=== PATIENT | female | born 1995 | race Two or more races ===

== ENCOUNTER 2025-01-30 12:46 | Emergency (ER) | payer MEDICAID, SELFPAY ==
--- NOTE | 2025-01-30 12:59 | PD.EDEAR ---
ED Ear RME/HPI General Chief complaint: Ear Stated complaint: HAS SOMETHING IN L) EAR, DOESN'T KNOW WHAT IT IS Time Seen by Provider: 01/30/25 12:49 Arrival date/time: 01/30/25 12:46 29-year-old female presents with concerns for possible foreign body in the left ear patient's child is also here with a cotton swab in her right ear Limitations: no limitations Related Data Home Medications ?Medication ?Instructions ?Recorded ?Confirmed calcium carbonate (Tums) 2 tab PO Q6HR PRN Indigestion 06/18/18 05/14/23 prenat.vits,geovani,[id number] 1 tab PO QDAY 06/18/18 05/14/23 ( Vitamin tablet) Allergies Allergy/AdvReac Type Severity Reaction Status Date / Time No Known Allergies Allergy Verified 01/30/25 12:48 Review of Systems Review of Systems Systems Reviewed: All systems reviewed, normal except as documented Constitutional Constitutional: Reports system reviewed and no additional complaints, except as documented, Denies fever(s) and Denies headache(s) Eyes Eyes: Reports system reviewed and no additional complaints, except as documented and Denies blurry vision ENT Ears, Nose, Mouth, and Throat: Reports system reviewed and no additional complaints, except as documented, Denies headache(s), Denies nasal congestion and Denies nasal discharge Cardiovascular Cardiovascular: Reports system reviewed and no additional complaints, except as documented, Denies chest pain and Denies dyspnea Respiratory Respiratory: Reports system reviewed and no additional complaints, except as documented, Denies chest congestion, Denies cough and Denies dyspnea Gastrointestinal Gastrointestinal: Reports system reviewed and no additional complaints, except as documented and Denies abdominal pain Integumentary/Breasts Skin/Breast: Reports system reviewed and no additional complaints, except as documented and Denies rash Neurologic Neurologic: Reports system reviewed and no additional complaints, except as documented, Reports as per HPI and Denies headache(s) Past Medical History Past Medical History NEUROLOGIC: Negative Neurological Disorders CARDIAC: Negative Cardiac Disorders or Congestive Heart Failure RESPIRATORY: Negative Chronic Obstructive Pulmonary Disease (COPD) GASTROINTESTINAL: Negative Gastrointestinal Disorders, Hepatitis or Colorectal Cancer GENITOURINARY: Negative Genitourinary Disorders, Renal Disease or Prostate Cancer REPRODUCTIVE: Positive Previous Pregnancies; Negative Breast Cancer, Pelvic Inflammatory Disease or Testicular Cancer MUSCULOSKELETAL: Negative Musculoskeletal Disorders or Bone Cancer ENDOCRINE: Negative Endocrine Disorders, Diabetes Mellitus Type 1 or Diabetes Mellitus Type 2 HEMATOLOGIC: Negative Blood Disorders OTHER HISTORY: Negative Hospitalization, Autoimmune Disease, Down Syndrome, Developmental Delay, Shingles, Falls, Blood Transfusions, Blood Transfusion Reaction, Anesthesia Reactions, Organ Transplant, Chemotherapy, Radiation Therapy, Hyperbaric Therapy, MRSA, VRSA, Vancomycin-Resistant Enterococci, Human Immunodeficiency Virus (HIV), Chicken Pox, Measles, Mumps, Rubella ([place] Measles), Pertussis, Clostridium Difficile, Breast Cancer, Cervical Cancer, Colorectal Cancer, Lung Cancer, Ovarian Cancer, Prostate Cancer or Testicular Cancer Family History FAMILY HISTORY: Positive Family Cancer; Negative Family Psychiatric Problems, Family Respiratory Disorders, Family Cardiac Disorders, Family Gastrointestinal Problems, Family Surgery or Family Anesthesia Reaction Surgical History SURGICAL: Positive Gastric Bypass Surgery; Negative Section or Organ Transplant Social History SMOKING STATUS: Never smoker SUBSTANCE USE: does not use ED Exam General Limitations: Present no limitations General appearance: Present alert and in no apparent distress Head Head exam: Present atraumatic Eye Eye exam: Present normal appearance, PERRL and EOMI ENT ENT exam: Present normal exam, normal oropharynx and mucous membranes moist Neck Neck exam: Present normal inspection, full ROM and trachea midline Chest Chest inspection: Present normal inspection and symmetric chest wall rise Respiratory Respiratory exam: Present normal lung sounds bilaterally Cardiovascular Cardiovascular exam: Present regular rate, normal rhythm and normal heart sounds Abdominal Exam Abdominal exam: Present soft and normal bowel sounds Extremities Exam Extremities exam: Present normal inspection and full ROM Back Exam Back exam: Present normal inspection and full ROM Neurological Exam Neurological exam: Present alert, oriented X3 and CN II-XII intact Psychiatric Psychiatric exam: Present normal affect and normal mood Skin Skin exam: Present warm, dry, intact and normal color Course Quality Measures none Vital Signs Vital signs: Vital Signs Temperature 98.5 F 01/30/25 13:02 Pulse Rate 89 01/30/25 13:02 Respiratory Rate 18 01/30/25 13:02 Blood Pressure 138/89 H 01/30/25 13:02 Pulse Oximetry (%) 99 01/30/25 13:02 Oxygen Delivery Method Room Air 01/30/25 13:02 O2 saturation 9 9% on room air within normal limits Ear Patient data External records reviewed:: [facility] previous records Clinical information provided by:: patient Social determinants that could affect healthcare access:: none Patient has the following chronic illnesses:: None How is presenting disease/condition affected by chronic disease/condition?: no chronic disease Evaluation data The following diagnostics were reviewed and interpreted by me:: other (specify) Lab and/or radiology exams considered but not ordered:: Consider not ordered Interpretation Summary: N/A Medications / Prescriptions Medications or Prescriptions considered but not ordered:: Given no meds Medication administrations:: Given no meds Consultations Consultation(s) initiated? (list below): No Diagnosis Ear Differential Diagnosis: otitis externa, otitis media and foreign body in ear Most likely diagnosis given after review of the tests above:: Foreign body ear Admission Indicated Admission indicated?: not indicated Admission Request Was there a request for admission?: No Disposition Plan Disposition Plan: Discharge Discharge Attestation Discharge Attestation: The patient and all family members were given an opportunity to ask questions and understood the discharge instructions. Discharge instructions specifically effects, indications for sooner follow up or return to the emergency department, and the expected course of current diagnosis. Patient condition: Stable Medical Decision Making MDM Narrative MDM Narrative: 29-year-old female presents with concerns for possible foreign body in the left ear patient's child is also here with a cotton swab in her right ear On exam patient well-appearing patient's not appear ill or toxic patient is no evidence of foreign body in either ear Patient discharged home in no distress to follow-up with primary care doctor in the next 24 to 48 hours and for any worsening symptoms to return to the ER immediately Differential Diagnosis Differential Diagnosis: Foreign body ear, normal exam, otalgia Medical Records Medical records reviewed: Yes I reviewed the patient's medical records. Discharge Plan Plan Patient Disposition: HOME (Self Care) Disposition Comment: Stable Prescriptions/Referrals Prescriptions/Med Rec: No Action calcium carbonate [Tums] 200 mg calcium (500 mg) Tablet,Chewable 2 tab PO Q6HR PRN (Reason: Indigestion) Vitamin Tablet 1 tab PO QDAY Problem List Clinical Impression: Otalgia Patient/Caregiver Discharge Instructions Education Materials: Anatomy of the Ear Additional Instructions: Please follow up with your primary care doctor in the next 24-48hrs for any worsening symptoms return here immediately Print Language: Armenian Stand Alone Forms: Anat Award Info., Patient Portal Info Letter PA/HYDROELECTRIC MECHANIC Supervising Physician PA/HYDROELECTRIC MECHANIC Supervising Physician: Dr stewart
[2025-01-30 13:02] VITALS: BP 138/89; PULSE 89; RESP 18; TEMP 36.9; O2SAT 99
== END 2025-01-30 13:10 | disposition home or self-care (01) ==
LOC: SERX 14:11
PROVIDERS: Emergency Provider Family Medicine
DX: H92.02 Otalgia, left ear (principal)
CPT/HCPCS: 99281

== ENCOUNTER 2025-04-08 10:37 | Observation (INO) | payer MEDICAID, SELFPAY ==
[2025-04-08 10:45] VITALS: BP 118/61; PULSE 93; RESP 16; RESP 98; TEMP 36.8; BMI 32.1
--- NOTE | 2025-04-08 11:02 | PC.NURSE ---
MD Ashley called with Sbar report. more then 10 movements per hour. no labor complaints. pt will be discharged home. education will be given on kick counts. encourage pt to return to triage prn
--- NOTE | 2025-04-08 11:14 | PC.NURSE ---
1035 pt to triage with c/o decreased fm. denies any ctx, bleeding or leaking. Pt states that she has last felt baby move yesterday at 2100. pt ate this morning, efmx2 applied. fm clicker provided to pt and educated to push with fm. pt stated I just felt him move . abdomen palpates soft.
--- NOTE | 2025-04-08 11:17 | PC.NURSE ---
1113- sbar report given to MD alan. Cat 1 strip. over 20 fm reported since efm placement. mother now feels move. per md, discharge mother home.
--- NOTE | 2025-04-08 11:18 | PC.NURSE ---
1115- antepartum and kick count education given to mother and significant other. Pt comfortable with plan of discharge and agreeable to go home. RTT PRN for bleeding, leaking, or contractions or decreased FM. pt in stable condition ambulatory home.
== END 2025-04-08 11:15 | disposition home or self-care (01) ==
PROVIDERS: Admitting Provider Obstetrics & Gynecology; Visit Provider Obstetrics & Gynecology
DX: O36.8130 Decreased fetal movements, third trimester, not applicable or unspecified (principal); Z3A.38 38 weeks gestation of pregnancy
CPT/HCPCS: 59025; 59899

== ENCOUNTER 2025-04-23 19:24 | Inpatient (IN) | payer MEDICAID, SELFPAY ==
[2025-04-23 19:28] VITALS: BMI 34.4
[2025-04-23] MEDS: RINGERS LACTATED 1000 ML 1,000 ML 125 ML IV (19:35)
--- NOTE | 2025-04-23 20:05 | XR_ITS ---
Examination: Complete OB ultrasound greater than 14 weeks Date and time of exam: April 23, 2025 2030 hours INDICATIONS: Labor induction, postdates Findings: Viable intrauterine single fetus with single amniotic sac presentation cephalic Cardiac motion 126 BPM Placenta anterior grade 2 Umbilical cord insertion 3 vessel seen Amniotic fluid index 8.2 cm spine maternal right Ovaries obscured by bowel gas. Composite estimated gestational age based on BPD, head circumference, abdominal circumference, femur length is 39 weeks 5 days Estimated weight 3825 g. Survey of intracranial anatomy, spinal anatomy, abdominal anatomy, four-chamber heart performed with no abnormalities identified. Impression: Viable intrauterine gestation cephalic presentation.
[2025-04-23 20:21] LABS: Basophils % (Auto) 0 % (0-2.5); Eosinophils # (Auto) 0.2 Thou/mm3 (0.0-0.5); Eosinophils % (Auto) 2 % (0-10); Hematocrit 33.5 % (36.0-46.0); Hemoglobin 12.3 g/dL (12.0-16.0); Immature Granulocytes % (Auto) 0 % (0-0); Immature Granulocytes Auto 0.03 Thou/mm3 (0.00-0.00); Lymphocytes % (Auto) 24 % (10-50); Mean Corpuscular HGB Conc 36.7 g/dl (31.0-37.0); Mean Corpuscular Hemoglobin 32.1 pg (25.0-35.0); Mean Corpuscular Volume 88 fL (80-100); Monocytes # (Auto) 0.6 Thou/mm3 (0.0-0.8); Monocytes % (Auto) 7 % (0-12); Neutrophils # (Auto) 5.7 Thou/mm3 (1.8-7.7); Neutrophils % (Auto) 67 % (37-80); Nucleated Red Blood Cell % 0 /100 WBC (0); Platelet Count 253 Thou/mm3 (140-440); RDW Standard Deviation 42.6 fL (36.4-46.3); Red Blood Count 3.83 Miln/mm3 (4.00-5.20); White Blood Count 8.5 Thou/mm3 (3.6-11.0)
--- NOTE | 2025-04-23 21:00 | ESHP_ITS ---
Documentation for date of: 04/24/25 OB Labor/Induct. HPI History of Present Illness Chief complaint: 29 y/o 40w 2d presents to L&D for IOL for postdates : 7 Para: 4 Term pregnancies: 4 pregnancies: 0 Living children: 4 History of Abortions: Spontaneous and Elective: 0 History of Vaginal deliveries: 4 History of sections: No History of : No Date of last menstrual period: 07/15/24 ANUJA: 04/21/25 Gestational Age (weeks): 40 Gestational Age (days): 2 Gestational age based on last menstrual period: 40 Indication for induction: post dates History of present illness: 29 y/o 40w 2d presents to L&D for IOL for postdates. Cervix is 1 thick and high vertex. has been uncomplicated. GBS is neg. EFW 3900g History of Present Dating criteria: LMP confirmed by 1st trimester US Adequate Care: Yes Ultrasounds: normal 1st trimester US and normal mid trimester US Obstetrical complications: none Medical complications: none Labs Maternal Blood Type: O Pos Labs: Positive: Rubella Titre, Negative: RPR, Hepatitis B, HIV, Chlamydia, Gonorrhea and Group Beta Strep and Unknown: Herpes Type 1, Herpes Type 2 and Covid-19 Review of Systems Review of Systems Systems Reviewed: All systems reviewed, normal except as documented Past Medical History Surgical History SURGICAL: Negative Section Meds Home Medications and Allergies Home Medications ?Medication ?Instructions ?Recorded ?Confirmed ?Type calcium carbonate (Tums) 2 tab PO Q6HR PRN Indigestio n 06/18/18 05/14/23 History prenat.vits,geovani,[id number] 1 tab PO QDAY 06/18/18 05/14/23 History ( Vitamin tablet) Allergies Allergy/AdvReac Type Severity Reaction Status Date / Time No Known Allergies Allergy Verified 04/08/25 11:28 OB Exam Physical Exam Vital signs: Temp Pulse BP 98.2 F 76 109/55 L 04/24/25 07:30 04/24/25 11:26 04/24/25 11:26 Constitutional Constitutional: no acute distress Routine HEENT Exam Head: Present normocephalic and atraumatic Eye: Present EOMI, PERRL and normal accommodation ENT: Present mucous membranes moist Routine Neck Exam Neck: Present supple, full ROM and trachea midline Routine Cardiovascular Exam Cardiovascular: Present RRR Routine Abdominal Exam Abdominal: Present soft and normoactive bowel sounds; Absent tenderness Comments: Gravid Uterus EFW 3900g Routine Exam External: Present normal urethra appearance; Absent lesions Detailed Labor and Delivery Exam Dilation (cm): 1 Effacement (%): 30 Cervix position: posterior station: -3 Consistency: soft Presentation: Vertex Membranes: intact Baseline heart rate: 130 monitor accelerations: 15x15 monitor decelerations: None terminal system operator variability: Moderate (11-25) Contraction frequency (min): none Routine Extremities Exam Extremities: Present full ROM Routine Back/Spine/Pelvis Exam Back/Spine: Present full ROM Routine Skin Exam Skin: Present intact, dry and warm Routine Neurological Exam Neurological: Present alert, oriented X3 and CN II-XII intact Routine Psychiatric Exam Psychiatric: Present normal affect and normal thought process OB Results Labs 04/23/25 19:40 Labs: Short CBC 04/23/25 Range/Units 19:40 WBC 8.5 (3.6-11.0) Thou/mm3 Hgb 12.3 (12.0-16.0) g/dL Hct 33.5 L (36.0-46.0) % Plt Count 253 (140-440) Thou/mm3 OB Assessment & Plan Assessment and Plan (1) Encounter for induction of labor: Status: Acute (2) Grand multipara in labor in third trimester: Status: Acute Additional Plan Induction method: other (cervidil) Plan: induction Additional Plan Comment: Routine admit orders 2nd IV PPH precautions Ordered 2 units of PRBCs on hold Consult anethesia for an episural
[2025-04-23 21:03] VITALS: BP 117/71; PULSE 86
[2025-04-23] MEDS: DINOPROSTONE 10 MG VAG.SUPP VAGINAL (21:45)
[2025-04-23 22:37] LABS: Syphilis Nonreactive (Nonreactive)
[2025-04-23 22:53] VITALS: BP 96/54; PULSE 75
[2025-04-24] VITALS (49 sets, daily range): BP systolic 99–141; BP diastolic 53–87; PULSE 72–120; RESP 17–18; TEMP 36.5–36.8; O2SAT 97–98
[2025-04-24] MEDS: fentaNYL CIT INJ 50 mCg/ML AMP 2ML 100 MCG IVP ×3 (02:23→04:50)
[2025-04-24] MEDS: RINGERS LACTATED 1000 ML 1,000 ML 125 ML IV (03:41)
[2025-04-24] MEDS: MINERAL OIL 30 ML UDC TOP (09:30)
[2025-04-24] MEDS: OXYTOCIN in NS 20 units 20 UNIT/1,000 ML BAG 125 UNIT IV (09:35)
--- NOTE | 2025-04-24 09:54 | OBDSUM_ITS ---
Data (Gonzalez) Data Hx Section: No Maternal Blood Type: O Pos Rubella Titre: Positive RPR: Non-reactive Labs: Negative: RPR, Hepatitis B, HIV, Chlamydia, Gonorrhea and Group Beta Strep and Unknown: Herpes Type 1 and Herpes Type 2 : 7 Para: 4 Term: 4 : 0 Livin Abortions: Spontaneous & Theraputic: 0 Delivery Data (Gonzalez) Labor Data Initiation of labor: Induction Induction/Augmentation Agent: Cervidil ROM date: 04/24/25 ROM time: 09:28 Amniotic membrane rupture type: Artificial Amniotic fluid description: Clear Delivery Data EDC: 04/21/25 EDC calculated by:: LMP/early US confirmation Onset of labor date: 04/24/25 Onset of labor time: 05:44 Complete dilation date: 04/24/25 Complete dilation time: 09:30 delivery date: 04/24/25 delivery time: 09:35 Gestational age (weeks): 40 Gestational age (days): 3 Placenta delivery date: 04/24/25 Placenta delivery time: 09:35 Stage 1 total time: Labor - Stage 1 Duration 3 hours and 46 minutes Delivered by: Saadia Osuna Delivery nurse: Jossue Shahid RN [place] nurse: Arleen Terrazas RN Payroll Accounting Manager at delivery: No Delivery Method Delivery method: Normal Vaginal Delivery Presentation: Vertex position: OA Anesthesia Type Anesthesia Type: Epidural Anesthesia type: None Delivery Room Medications Delivery room medications: Pitocin 20 u IV Placenta Placenta delivery description: Spontaneous Cord blood sent to lab: Yes cord blood collection: Cord Blood Type Episiotomy Episiotomy description: None EBL Estimated blood loss (ml): 100 Umbilical Cord cord description: 3 Vessels Additional Procedures 04/24/25: CNM was called in at 9-1/2 cm upon arrival. Patient was comfortable with an epidural. Cervical exam, complete. AROM performed, clear fluids. Patient instructed to push with contraction. After 3 pushes patient had an of a viable male . 's anterior shoulder delivered with gentle downward traction subsequent deliver the posterior shoulder and the body without complications. placed on mother's abdomen. Vigorous cry upon delivery. Cord was clamped after 30 seconds.. Cut by FOB. Cord blood obtained. Three- vessel cord noted. Placenta expelled spontaneously and intact. No lacerations noted. Perineum intact. Excellent hemostasis achieved after vigorous fundal massage and removal of clots from the posterior fornix. EBL 100. Sponge and needle count correct. Mother and baby stable, skin to skin and bonding in LDR. Milton Data (Gonzalez) Data order: 1 Milton's gender: Male Identification band number: [id number] weight (gms): 4040 g Weight (pounds): 8 lbs and 14.5 ozs length: 22 cm 1 minute: 9 5 minutes: 9
--- NOTE | 2025-04-24 12:26 | PC.NURSE ---
report received from Sofia RN at [id number]
--- NOTE | 2025-04-24 12:27 | PC.NURSE ---
at 1200, mother resting in bed, skin to skin, attempting to breast feed. Family at bedside.
[2025-04-24] MEDS: HYDROcodone/APAP 5/325 TABLET 1 TAB PO ×2 (14:01→19:29)
[2025-04-24 15:33] LABS: Basophils % (Auto) 0 % (0-2.5); Eosinophils % (Auto) 0 % (0-10); Hematocrit 33.9 % (36.0-46.0); Hemoglobin 12.2 g/dL (12.0-16.0); Immature Granulocytes % (Auto) 0 % (0-0); Immature Granulocytes Auto 0.03 Thou/mm3 (0.00-0.00); Lymphocytes # (Auto) 1.5 Thou/mm3 (1.0-4.8); Lymphocytes % (Auto) 10 % (10-50); Mean Corpuscular Hemoglobin 31.8 pg (25.0-35.0); Mean Corpuscular Volume 88 fL (80-100); Monocytes % (Auto) 7 % (0-12); Neutrophils # (Auto) 12.3 Thou/mm3 (1.8-7.7); Neutrophils % (Auto) 82 % (37-80); Nucleated Red Blood Cell % 0 /100 WBC (0); Platelet Count 241 Thou/mm3 (140-440); Red Blood Count 3.84 Miln/mm3 (4.00-5.20); White Blood Count 14.9 Thou/mm3 (3.6-11.0)
[2025-04-24] MEDS: IBUPROFEN TAB 400 MG TABLET 800 MG PO (17:05)
[2025-04-24] MEDS: PANTOPRAZOLE 40 MG TABLET PO (22:12)
[2025-04-25 00:12] VITALS: BP 110/72; PULSE 63; RESP 17; TEMP 36.6; O2SAT 97
[2025-04-25] MEDS: HYDROcodone/APAP 5/325 TABLET 1 TAB PO ×2 (00:17→11:29)
[2025-04-25 04:40] VITALS: BP 105/71; PULSE 76; RESP 17; TEMP 36.3; O2SAT 98
--- NOTE | 2025-04-25 06:39 | PD.LDDS ---
DS: Providers Provider Date of admission: 04/23/25 19:24 Primary care physician: Physician No Primary/Family Admitting Provider: Elin Bourne MD Attending Provider on Admission: Elin Bourne MD Attending Provider on DC: Saadia Osuna CNM Discharging Provider: Saadia Osuna CNM Anticipated date of discharge: 04/25/25 DS: Diagnosis Discharge Diagnosis (1) Normal spontaneous vaginal delivery: Status: Acute (2) Encounter for care of lactating mother: Status: Acute (3) Encounter for induction of labor: Status: Acute (4) Grand multipara in labor in third trimester: Status: Acute Problem List Completed Was Problem List Reviewed/Reconciled?: Yes Summary/Hosp Course Brief History: 29 y/o 40w 2d presents to L&D for IOL for postdates. Cervix is 1 thick and high vertex. has been uncomplicated. GBS is neg. EFW 3900g 04/24/25: CNM was called in at 9-1/2 cm upon arrival. Patient was comfortable with an epidural. Cervical exam, complete. AROM performed, clear fluids. Patient instructed to push with contraction. After 3 pushes patient had an of a viable male . 's anterior shoulder delivered with gentle downward traction subsequent deliver the posterior shoulder and the body without complications. Infant placed on mother's abdomen. Vigorous cry upon delivery. Cord was clamped after 30 seconds.. Cut by FOB. Cord blood obtained. Three-vessel cord noted. Placenta expelled spontaneously and intact. No lacerations noted. Perineum intact. Excellent hemostasis achieved after vigorous fundal massage and removal of clots from the posterior fornix. EBL 100. Sponge and needle count correct. Mother and baby stable, skin to skin and bonding in LDR. 04/25/25: day 1. Patient is stable and afebrile. Breast-feeding and bonding well. No complaints. Uterus is nontender fundus firm minimal lochia. Discharge instructions given. Patient to follow-up with Saadia Osuna CNM in 3 weeks Peripartum Data Delivery Method: Normal Vaginal Delivery Episiotomy Description: None Laceration Description: no complications: none [place] 1: Gender: Male Disposition of : home Status at Discharge Cognitive/behavioral status at discharge: Alert and oriented x 3 Functional status at discharge: independent ambulation Overall status at discharge: patient is progressing back to baseline Time Spent with Patient Time attestation: Total time spent providing and/or coordinating discharge services: Time spent: Greater than 30 minutes Exam Vital Signs Temp Pulse BP 98.2 F 96 132/70 H 04/24/25 07:30 04/24/25 09:27 04/24/25 09:27 Constitutional Constitutional: no acute distress Routine HEENT Exam Head: Present normocephalic and atraumatic Eye: Present EOMI, PERRL and normal accommodation ENT: Present mucous membranes moist Routine Neck Exam Neck: Present full ROM Routine Respiratory Exam Respiratory: Present chest non-tender, lungs clear, normal breath sounds and no resp distress Routine Cardiovascular Exam Cardiovascular: Present RRR Routine Abdominal Exam Abdominal: Present soft and normoactive bowel sounds; Absent tenderness or distended Comments: Uterus nontender Fundus firm Routine Exam Patient deferred: external exam Routine Extremities Exam Extremities: Present full ROM, pulses intact and normal capillary refill; Absent calf tenderness or tenderness Routine Back/Spine/Pelvis Exam Back/Spine: Present full ROM Routine Skin Exam Skin: Present intact, dry and warm Routine Neurological Exam Neurological: Present alert, oriented X3 and CN II-XII intact Routine Psychiatric Exam Psychiatric: Present normal affect and normal thought process Discharge Plan Plan Patient Disposition: HOME (Self Care) Patient condition on transfer: Stable Prescriptions/Referrals Prescriptions/Med Rec: New docusate sodium [Colace] 100 mg capsule 100 mg PO BID Qty: 60 0RF ibuprofen 600 mg tablet 600 mg PO Q6H PRN (Reason: pain) Qty: 60 0RF lanolin 50 % ointment 1 applic topical TID PRN (Reason: skin irritation) Qty: 15 0RF Continued Vitamin Tablet 1 tab PO QDAY No Action calcium carbonate [Tums] 200 mg calcium (500 mg) Tablet,Chewable 2 tab PO Q6HR PRN (Reason: Indigestion) Referrals: No Primary/Family,Physician [Primary Care Provider] - Patient/Caregiver Discharge Instructions Meds to Beds: No Discharge Activity: activity as tolerated Other Discharge Activity Instructions:: Follow-up with Saadia Osuna CNM in 3 weeks Education Materials: After a Vaginal , After Delivery [place] Concerns, : Caring for Yourself Print Language: Thai Stand Alone Forms: Anat Award Info., Patient Portal Info Letter Discharge Order Discharge Orders: Discharge (Routine); Ordered 04/25/25 Ordered By: Saadia Osuna Planned Discharge Date 04/25/25
[2025-04-25 08:10] VITALS: BP 109/70; PULSE 80; RESP 17; TEMP 36.6; O2SAT 98
[2025-04-25] MEDS: DOCUSATE SOD 100 MG CAPSULE PO (09:29)
--- NOTE | 2025-04-25 11:18 | PC.SS ---
SS conducted bedside contact with the patient to address nursing referral indicating patient had history of post- depression. ?SS introduced self and role.? SS asked for permission to speak in front of family member. Patient agreed. SS discussed with patient basis of referral.? Patient confirmed with her last child, she suffered from depression. ?Patient states she was never on medication and did not seek therapy. Patient, currently, has no impairments. Patient has no current thoughts of harming herself or others.? No other history of documented mental health. Adin YIP, is involved but does not ?reside in the home. This is patient?s 5th child. Children?s ages are: 10, 9, 6, 1 years old and NB. ?, baby boy, was born yesterday via vaginal . care was completed with Brittany Villagran NP.? Patient was consistent with . Patient plans on breast feeding and bottle feeding. Patient is aligned with WIC, [place] assistance and Food stamps. Patient denies history of domestic violence. Patient has all resources to include: car seat, infant clothing and supplies.? advisory services associate provided resources to include:? [employer], Warm Line and community numbers. SS discussed in further detail emotional support and answered all questions appropriately. Patient verbalized she has support from her glass cutter and her family. ?No further intervention required at this time, manager social services will be available to address any further concerns. SS updated bedside nurse. d/c address: [id number], [place]
== END 2025-04-25 12:15 | disposition home or self-care (01) | DRG 560 ==
LOC: S4SX 04-24 09:47 → S4NX 04-24 11:48
PROVIDERS: Nurse Practitioner Women's Health; Admitting Provider Student in an Organized Health Care Education/Training Program; Visit Provider Student in an Organized Health Care Education/Training Program
DX: O48.0 Post-term pregnancy (principal); Z37.0 Single live birth; Z3A.40 40 weeks gestation of pregnancy
CPT/HCPCS: 36415; 59409; 76805; 85025; 86780; 86850; 86900; 86901; 86923; 94762; J2590; J2795; J3010; J7120; A9270

== ENCOUNTER 2025-10-18 00:04 | Emergency (ER) | payer MEDICAID, SELFPAY ==
[2025-10-18 00:20] VITALS: BMI 32.5
[2025-10-18 00:24] VITALS: BP 129/79; PULSE 107; RESP 18; TEMP 37.7; O2SAT 97
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
== END 2025-10-18 01:37 ==
PROVIDERS: Emergency Provider Emergency Medicine; PCP Family Medicine
DX: Z02.89 Encounter for other administrative examinations (principal); Z04.1 Encounter for examination and observation following transport accident
CPT/HCPCS: 99281

== ENCOUNTER 2025-11-09 15:36 | Emergency (ER) | payer MEDICAID, SELFPAY ==
[2025-11-09 15:37] VITALS: BMI 32.8
[2025-11-09 16:25] VITALS: BP 115/76; PULSE 88; RESP 18; TEMP 37.1; O2SAT 98
[2025-11-09 16:54] LABS: Basophils # (Auto) 0.0 Thou/mm3 (0.0-0.2); Basophils % (Auto) 0 % (0-2.5); Eosinophils # (Auto) 0.1 Thou/mm3 (0.0-0.5); Eosinophils % (Auto) 1 % (0-10); Hematocrit 40.0 % (36.0-46.0); Hemoglobin 14.0 g/dL (12.0-16.0); Immature Granulocytes Auto 0.04 Thou/mm3 (0.00-0.00); Lymphocytes # (Auto) 1.4 Thou/mm3 (1.0-4.8); Lymphocytes % (Auto) 11 % (10-50); Mean Corpuscular HGB Conc 35.0 g/dl (31.0-37.0); Mean Corpuscular Hemoglobin 32.1 pg (25.0-35.0); Mean Corpuscular Volume 92 fL (80-100); Monocytes # (Auto) 0.4 Thou/mm3 (0.0-0.8); Monocytes % (Auto) 3 % (0-12); Neutrophils # (Auto) 11.2 Thou/mm3 (1.8-7.7); Neutrophils % (Auto) 85 % (37-80); Nucleated Red Blood Cell # 0.00 Thou/mm3 (0.00-0.00); Nucleated Red Blood Cell % 0 /100 WBC (0); Platelet Count 267 Thou/mm3 (140-440); RDW Standard Deviation 39.6 fL (36.4-46.3); Red Blood Count 4.36 Miln/mm3 (4.00-5.20); White Blood Count 13.3 Thou/mm3 (3.6-11.0)
[2025-11-09 17:03] LABS: Alanine Aminotransferase 13 U/L (10-49); Albumin, Serum 5.0 gm/dL (3.5-5.0); Albumin/Globulin Ratio 1.6 (1.2-2.2); Alkaline Phosphatase 70 U/L (46-116); Anion Gap 11 (7-16); Aspartate Amino Transferase 20 U/L (0-34); BUN/Creatinine Ratio 19 Ratio (12-20); Bilirubin,Total 0.7 mg/dL (0.3-1.2); Blood Urea Nitrogen 13 mg/dL (9-23); Calcium 9.0 mg/dL (8.3-10.6); Calcium (Corrected) 9.0 mg/dL (8.5-10.1); Carbon Dioxide 25.2 mMol/L (20.0-31.0); Chloride 105 mMol/L (98-107); Creatinine (Component) 0.7 mg/dL (0.6-1.3); Estimated Creatinine Clearance 132.1 mL/min (>60); Globulin 3.2 gm/dL (2.3-3.5); Glucose 96 mg/dL (74-106); Lipase 34 U/L (12-53); Osmolality,Calculated 281 (275-295); Potassium 4.1 mMol/L (3.4-5.1); Sodium 141 mMol/L (136-145); Total Protein 8.2 gm/dL (5.7-8.2); eGFR > 60 See Note
[2025-11-09 17:30] LABS: Collection Type, Urine Clean Catch
[2025-11-09 18:02] LABS: Bilirubin,Urine Negative (Negative); Blood,Urine Negative (Negative); Clarity,Urine Turbid (Clear/Hazy); Color,Urine Yellow (Lt Yel-Yel); Glucose, Urine Negative (Negative); Ketones,Urine Negative (Negative); Leukocyte Esterase,Urine Positive (Negative); Nitrite,Urine Negative (Negative); PH,Urine 6.0 (5.0-7.0); Protein,Urine Trace (Neg - Trace); RBC,Urine 5 /hpf (0-3); Specific Gravity,Urine 1.031 (1.001-1.035); Squamous Epithelial Cell,Urine 33 /hpf (0-5); Urobilinogen,Urine 2.0 mg/dL (0.0-1.0); WBC,Urine 6 /hpf (0-5)
[2025-11-09 18:04] LABS: HCG Qualitative,Urine Negative
--- NOTE | 2025-11-09 19:27 | PD.EDNV ---
Nausea/Vomit./Diarrhea-RME/HPI General Chief complaint: Abdominal Pain Stated complaint: MID UPPER ABD PAIN X1 HR, N/V, LIGHTHEADED Time Seen by Provider: 11/09/25 16:23 Source: patient and family Arrival date/time: 11/09/25 15:36 Mode of arrival: ambulatory Limitations: no limitations RME / HPI RME / HPI Narrative: This patient is a 30-year-old female who arrives to the ED today for evaluation of abdominal pain concerns. Patient states that she was at her parents house eating when she experienced upper abdominal pain concerns. Patient states they were sharp and unrelenting for approximately 1 hour. Patient states symptoms have improved prior to my assessment in triage. Vital signs were stable arrival. Related Data Home Medications ?Medication ?Instructions ?Recorded ?Confirmed calcium carbonate (Tums) 2 tab PO Q6HR PRN Indigestion 06/18/18 05/14/23 prenat.vits,geovani,cuc-bnxa-qzuva 1 tab PO QDAY 06/18/18 05/14/23 ( Vitamin tablet) Previous Rx's ?Medication ?Instructions ?Recorded docusate sodium 100 mg capsule 100 mg PO BID #60 caps 04/24/25 (Colace) ibuprofen 600 mg tablet 600 mg PO Q6H PRN pain #60 tabs 04/24/25 lanolin 50 % topical ointment 1 applic topical TID PRN skin 04/24/25 irritation #15 tubes cephalexin 250 mg capsule 250 mg PO Q8H 5 days #15 caps 11/09/25 ondansetron 4 mg disintegrating 4 mg PO Q6H PRN nausea and 11/09/25 tablet vomiting #10 tabs Allergies Allergy/AdvReac Type Severity Reaction Status Date / Time No Known Allergies Allergy Verified 11/09/25 15:39 Review of Systems Review of Systems Systems Reviewed: All systems reviewed, normal except as documented Past Medical History Past Medical History NEUROLOGIC: Negative Neurological Disorders CARDIAC: Negative Cardiac Disorders or Congestive Heart Failure RESPIRATORY: Negative Chronic Obstructive Pulmonary Disease (COPD) GASTROINTESTINAL: Negative Gastrointestinal Disorders, Hepatitis or Colorectal Cancer GENITOURINARY: Negative Genitourinary Disorders, Renal Disease or Prostate Cancer REPRODUCTIVE: Positive Previous Pregnancies; Negative Breast Cancer, Pelvic Inflammatory Disease or Testicular Cancer MUSCULOSKELETAL: Negative Musculoskeletal Disorders or Bone Cancer ENDOCRINE: Negative Endocrine Disorders, Diabetes Mellitus Type 1 or Diabetes Mellitus Type 2 HEMATOLOGIC: Negative Blood Disorders OTHER HISTORY: Negative Hospitalization, Autoimmune Disease, Down Syndrome, Developmental Delay, Shingles, Falls, Blood Transfusions, Blood Transfusion Reaction, Anesthesia Reactions, Organ Transplant, Chemotherapy, Radiation Therapy, Hyperbaric Therapy, MRSA, VRSA, Vancomycin-Resistant Enterococci, Human Immunodeficiency Virus (HIV), Chicken Pox, Measles, Mumps, Rubella (Beninese Measles), Pertussis, Clostridium Difficile, Cancer, Breast Cancer, Cervical Cancer, Colorectal Cancer, Lung Cancer, Ovarian Cancer, Prostate Cancer or Testicular Cancer Family History FAMILY HISTORY: Negative Family Psychiatric Problems, Family Respiratory Disorders, Family Cardiac Disorders, Family Gastrointestinal Problems, Family Cancer, Family Surgery or Family Anesthesia Reaction Surgical History SURGICAL: Positive Gastric Bypass Surgery; Negative Cardiac Surgery, Open Heart Surgery, Coronary Artery Bypass Graft, Valve Replacement, Vascular Surgery, Coronary Stent, Cardiac Catheterization, Pacemaker, Angiogram, Auto Implanted Cardiovert Defib, Carotid Endarterectomy, Endocrine Surgery, Thyroidectomy, Ear Surgery, Nephrectomy, Joint Replacement, Neurologic Surgery, Brain Shunt, Lumpectomy, Hysterectomy, Tubal Ligation, Section or Organ Transplant Social History SMOKING STATUS: Never smoker SECOND HAND EXPOSURE: No SUBSTANCE USE: does not use ED Exam Narrative Physical exam: Patient did not appear toxic at time of evaluation. General Limitations: Present no limitations General appearance: Present alert and in no apparent distress Head Head exam: Present atraumatic Eye Eye exam: Present normal appearance, PERRL and EOMI ENT ENT exam: Present normal exam, normal oropharynx and mucous membranes moist Neck Neck exam: Present normal inspection, full ROM and trachea midline Chest Chest inspection: Present normal inspection and symmetric chest wall rise Respiratory Respiratory exam: Present normal lung sounds bilaterally Cardiovascular Cardiovascular exam: Present regular rate, normal rhythm and normal heart sounds Abdominal Exam Abdominal exam: Present soft and other (Very mild diffuse epigastric tenderness to palpation. No pulsatile masses. Abdomen was soft.) Extremities Exam Extremities exam: Present normal inspection and full ROM Back Exam Back exam: Present normal inspection and full ROM Neurological Exam Neurological exam: Present alert, oriented X3 and CN II-XII intact Psychiatric Psychiatric exam: Present normal affect and normal mood Skin Skin exam: Present warm, dry, intact and normal color Course Quality Measures none Orders Category Date Time Status CBC Stat Lab 11/09/25 16:40 Completed CMP [Comprehensive Metabolic Panel] Stat Lab 11/09/25 16:40 Completed HCG Qualitative,Urine Stat Lab 11/09/25 17:24 Completed Lipase Stat Lab 11/09/25 16:40 Completed UA [Urinalysis] Stat Lab 11/09/25 17:24 Completed As noted above Vital Signs Vital signs: Vital Signs Temperature 98.7 F 11/09/25 16:25 Pulse Rate 88 11/09/25 16:25 Respiratory Rate 18 11/09/25 16:25 Blood Pressure 115/76 11/09/25 16:25 Pulse Oximetry (%) 98 11/09/25 16:25 Oxygen Delivery Method Room Air 11/09/25 16:25 As noted above Nausea/Vomiting/Diarrhea MDM Narrative MDM Narrative:: All studies performed the ED were evaluated by me personally. Serum studies were unremarkable for any systemic concerns. Urinalysis confirmed a minor urinary tract infection. Patient will be given a prescription for antibiotics for a few days. Advise Tylenol and/or Motrin as needed for pain. Patient data External records reviewed:: [facility] previous records Clinical information provided by:: patient Social determinants that could affect healthcare access:: none Patient has the following chronic illnesses:: None How is presenting disease/condition affected by chronic disease/condition?: no chronic disease Evaluation data The following diagnostics were reviewed and interpreted by me:: lab results Lab and/or radiology exams considered but not ordered:: None Interpretation Summary: Urinary tract infection Medications / Prescriptions Medications / Prescriptions considered but not ordered:: None Medication administrations:: None Consultations Consultation(s) initiated? (list below): No Diagnosis Nausea Differential Diagnosis: gastroenteritis and other (Sepsis, UTI, ) Most likely diagnosis given after review of the tests above:: UTI Admission Indicated Admission indicated?: not indicated Explain why admission is indicated or not indicated:: Unwarranted Admission Request Was there a request for admission?: No Disposition Plan Disposition Plan: Discharge Discharge Attestation Discharge Attestation: The patient and all family members were given an opportunity to ask questions and understood the discharge instructions. Discharge instructions specifically effects, indications for sooner follow up or return to the emergency department, and the expected course of current diagnosis. Patient condition: Stable Discharge Plan Plan Patient Disposition: HOME (Self Care) Prescriptions/Referrals Prescriptions/Med Rec: New cephalexin 250 mg capsule 250 mg PO Q8H 5 Days Qty: 15 0RF ondansetron 4 mg tablet,disintegrating 4 mg PO Q6H PRN (Reason: nausea and vomiting) Qty: 10 0RF No Action calcium carbonate [Tums] 200 mg calcium (500 mg) Tablet,Chewable 2 tab PO Q6HR PRN (Reason: Indigestion) Vitamin Tablet 1 tab PO QDAY docusate sodium [Colace] 100 mg capsule 100 mg PO BID Qty: 60 0RF ibuprofen 600 mg tablet 600 mg PO Q6H PRN (Reason: pain) Qty: 60 0RF lanolin 50 % ointment 1 applic topical TID PRN (Reason: skin irritation) Qty: 15 0RF Referrals: Corbin Hayes MD [Primary Care Provider, Family Practice] - In 1 week Problem List Clinical Impression: Urinary tract infection Patient/Caregiver Discharge Instructions Education Materials: ED CYSTITIS Female Adult Additional Instructions: Advised patient utilize antibiotics as directed to completion as well as additional medication as needed. Print Language: B[place]udian Stand Alone Forms: Anat Award Info., Patient Portal Info Letter
== END 2025-11-09 19:57 | disposition home or self-care (01) ==
PROVIDERS: Emergency Provider Physician Assistant; PCP Family Medicine
DX: N39.0 Urinary tract infection, site not specified (principal)
CPT/HCPCS: 36415; 80053; 81001; 81025; 83690; 85025; 99282